=== PATIENT | male | born 1975 | race American Indian/Alaskan Native ===

== ENCOUNTER 2019-02-22 04:07 | Emergency (ER) | payer SELFPAY ==
[2019-02-22 04:15] VITALS: BP 144/89
[2019-02-22] MEDS ORDERED: METOCLOPRAMIDE 10 MG/2 ML INJ IV ONE (04:44)
[2019-02-22] MEDS ORDERED: diphenhydrAMINE 50 MG/ML VIAL IV ONE (04:44)
[2019-02-22] MEDS ORDERED: dexAMETHasone 20 MG/5 ML VIAL IV ONE (04:44)
[2019-02-22] MEDS ORDERED: KETOROLAC 30 MG/1 ML INJ IV ONE ×2 (04:46→06:05)
--- NOTE | 2019-02-22 04:52 | Emergency Department Report ---
ED Headache HPI - General Chief Complaint: Headache Stated Complaint: HEADACHE Time Seen by Provider: 02/22/19 04:44 - History of Present Illness Initial Comments: 44-year-old -[place] male presents to the emergency room for intermittent headache since Tuesday. Patient states is tried taking Goody powders and ibuprofen but not helped. Patient reports headache on the left side. He admits to light sensitivity but denies nausea or vomiting. Patient states that he subsequently but does not do any other illicit drugs. Timing/Duration: other (5 days) Quality: severe, achy Head Injury Location: temporal (left) Modifying Factors: improves with: exposure to light Associated Symptoms: nasal congestion. denies: fatigue, facial pain, fever/chills, flushing, loss of consciousness, nausea/vomiting Allergies/Adverse Reactions: Allergies No Known Allergies Allergy (Unverified 02/22/19 04:19) Home Medications: Ambulatory Orders Butalb/Acetamin/Caff 50-325-40 [Fioricet 50-325-40] 1 tab PO Q8HR PRN #12 tablet 02/22/19 ED Review of Systems ROS: Stated complaint: HEADACHE Other details as noted in HPI ED Past Medical Hx - Past Medical History Previous Medical History?: No - Surgical History Past Surgical History?: Yes Hx Appendectomy: Yes Additional Surgical History: Hardware right lower leg - Social History Smoking Status: Never Smoker Substance Use Type: Marijuana - Medications Home Medications: Home Medications Medication Instructions Recorded Confirmed Last Taken Type Butalb/Acetamin/Caff 50-325-40 1 tab PO Q8HR PRN #12 tablet 02/22/19 Unknown Rx [Fioricet 50-325-40] ED Physical Exam - General Limitations: No Limitations General appearance: alert, in no apparent distress - Head Head exam: Present: atraumatic, normocephalic - Eye Eye exam: Present: normal appearance - ENT ENT exam: Present: mucous membranes moist - Expanded Neurological Exam Expanded Cranial nerves: EOM's Intact: Normal, Gag Reflex: Normal, Tongue Deviation: Normal, Nystagmus: Normal, Facial Sensation: Normal, Facial Palsy with Forehead Movement: Normal, Facial Palsy without Forehead Movement: Normal Cerebellar function: Finger to Nose: Normal, Heel to Lorenz: Normal, Romberg: Normal Upper motor neuron: Tarik Neglect: Normal, Pronator Drift: Normal, Babinski Sign: Normal, Sensory Extinction: Normal Sensory exam: Upper Extremity Light Touch: Normal, Upper Extremity Pin Prick: Normal, Upper Extremity Temperature: Normal, UE 2 Point Discrimination: Normal, Lower Extremity Light Touch: Normal, Lower Extremity Pin Prick: Normal, Lower Extremity Temperature: Normal, LE 2 Point Discrimination: Normal Motor strength exam: RUE: 4, LUE: 4, RLE: 4, LLE: 4 Best Eye Response ([place]): (4) open spontaneously Best Motor Response (Sam): (6) obeys commands Best Verbal Response (Sam): (5) oriented Sam Total: 15 - Psychiatric Psychiatric exam: Present: normal affect, normal mood - Skin Skin exam: Present: warm, dry, intact, normal color. Absent: rash ED Course Vital Signs 02/22/19 04:13 Temperature 98.9 F Pulse Rate 72 Respiratory 16 Rate Blood Pressure 144/89 O2 Sat by Pulse 96 Oximetry ED Medical Decision Making - Medical Decision Making 44-year-old -F[place] male presents to the emergency room for intermittent headache since Tuesday. Patient states is tried taking Goody powders and ibuprofen but not helped. Patient reports headache on the left side. He admits to light sensitivity but denies nausea or vomiting. Patient states that he subsequently but does not do any other illicit drugs. IV, Toradol 15 mg IV, Reglan 10 mg IV, dexamethasone 10 mg IV, and Benadryl 25 mg IV. Critical care attestation.: If time is entered above; I have spent that time in minutes in the direct care of this critically ill patient, excluding procedure time. ED Disposition Clinical Impression: Headache Disposition: DC- TO HOME OR SELFCARE Is pt being admited?: No Does the pt Need Aspirin: No Condition: Stable Instructions: Acute Headache (ED) Prescriptions: Butalb/Acetamin/Caff 50-325-40 [Fioricet 50-325-40] 1 tab PO Q8HR PRN #12 tablet PRN Reason: Headache Referrals: PRIMARY CAREMD [Primary Care Provider] - 3-5 Days ANA ROSA ALAN MD [Referring] - 3-5 Days Forms: Work/School Release Form(ED)
== END 2019-02-22 06:46 | disposition home or self-care (01) ==
LOC: ED 04:07
DX: R51 Headache (principal); Z90.49 Acquired absence of other specified parts of digestive tract; F12.10 Cannabis abuse, uncomplicated; Z79.899 Other long term (current) drug therapy
CPT/HCPCS: 96374; 96375; 96376; 99282; J1100; J1200; J1885; J2765